=== PATIENT | female | born 1945 | race Caucasian/White ===

== ENCOUNTER 2019-12-18 14:23 | Inpatient (IN) ==
[~2019-12-18 14:23] MED LIST: Ipratropium/Albuterol Neb 3 ML ONE
[2019-12-18] MEDS ORDERED: Ipratropium/Albuterol Neb 3 ML IH ONE (14:33)
[2019-12-18] MEDS ORDERED: cefTRIAXone 1,000 MG in 0.9 % Sodium Chloride Mini Bag 100 ML IVPB ONE (14:33)
[2019-12-18] MEDS ORDERED: methylPREDNISolone 125 MG/2 ML VIAL IVP ONE (14:33)
[2019-12-18] MEDS ORDERED: Azithromycin 500 MG in 0.9 % Sodium Chloride 250 ML IVPB ONE (14:33)
[2019-12-18 16:50] LABS: Basophils % 0.2 %; Hematocrit 40.8 % (35.3-44.9); Immature Granulocytes % 1.2 % (0-4); Lymphocytes # 0.7 K/mcL (0.6-4.6); Lymphocytes % 6.5 %; Mean Corpuscular HGB Conc 31.9 g/dL (31.6-35.5); Mean Corpuscular Hemoglobin 28.1 pg (28.0-33.3); Mean Corpuscular Volume 88.1 fL (83.0-100.0); Mean Platelet Volume 10.2 fL (9.4-12.4); Monocytes # 0.1 K/mcL (0.0-1.3); Monocytes % 0.9 %; Platelet Count 356 K/mcL (140-400); Red Blood Count 4.63 M/mcL (3.82-4.97); Red Cell Distribution Width 14.2 % (11.5-14.5); Segmented Neutrophils % 91.2 %; White Blood Count 10.6 K/mcL (4.3-11.1)
[2019-12-18 16:54] LABS: Neutrophils # 9.7 K/mcL (1.6-8.9)
[2019-12-18] MEDS ORDERED: 0.9 % Sodium Chloride 1,000 ML IVC ONE (17:33)
[2019-12-18] MEDS ORDERED: Naloxone 0.4 MG/ML INJ IVP PRN (18:01)
[2019-12-18] MEDS ORDERED: Albuterol 2.5 MG/3 ML NEBULIZER IH PRN (18:02)
[2019-12-18 18:43] LABS: BUN/Creatinine Ratio 16 (6-26); Blood Urea Nitrogen 18 mg/dL (8-23); Calcium 9.4 mg/dL (8.6-10.3); Carbon Dioxide 21 mEq/L (23-29); Chloride 103 mEq/L (98-107); Glucose 247 mg/dL (70-105); Osmolality,Calculated 298 (280-300); Potassium 3.7 mEq/L (3.5-5.1); Sodium 139 mEq/L (136-145); Troponin I < 0.03 ng/mL (< 0.04); eGFR For African Americans 57 (> 60); eGFR For Non-African Americans 47 (> 60)
[2019-12-18] MEDS ORDERED: Ipratropium/Albuterol Neb 3 ML IH SCH (20:00)
[2019-12-18] MEDS: IPRATROPIUM/ALBUTEROL SULFATE 120 PUFF INHALER IH SCH (23:20)
[2019-12-18] MEDS: methylPREDNISolone 125 MG/2 ML VIAL IVP SCH (23:39)
[2019-12-18] MEDS: Pantoprazole 40 MG VIAL IVP SCH (23:40)
[2019-12-18] MEDS ORDERED: Acetaminophen 325 MG TABLET PO ONE (23:42)
[2019-12-19] MEDS: IPRATROPIUM/ALBUTEROL SULFATE 120 PUFF INHALER IH SCH ×6 (03:35→23:52)
[2019-12-19] MEDS ORDERED: *HR* Metoprolol 5 MG/5 ML VIAL IVP ONE (03:48)
[2019-12-19 05:02] LABS: Hematocrit 37.3 % (35.3-44.9); Hemoglobin 11.9 g/dL (11.5-15.4); Mean Corpuscular HGB Conc 31.9 g/dL (31.6-35.5); Mean Corpuscular Hemoglobin 28.1 pg (28.0-33.3); Mean Platelet Volume 10.3 fL (9.4-12.4); Platelet Count 297 K/mcL (140-400); Red Blood Count 4.24 M/mcL (3.82-4.97); Red Cell Distribution Width 14.6 % (11.5-14.5); White Blood Count 14.5 K/mcL (4.3-11.1)
[2019-12-19 05:21] LABS: BUN/Creatinine Ratio 22 (6-26); Blood Urea Nitrogen 22 mg/dL (8-23); Calcium 9.5 mg/dL (8.6-10.3); Carbon Dioxide 23 mEq/L (23-29); Chloride 104 mEq/L (98-107); Glucose 222 mg/dL (70-105); Osmolality,Calculated 296 (280-300); Potassium 3.6 mEq/L (3.5-5.1); Sodium 138 mEq/L (136-145); eGFR For African Americans > 60 (> 60); eGFR For Non-African Americans 54 (> 60)
[2019-12-19] MEDS ORDERED: 0.9 % Sodium Chloride 500 ML IVC ONE (06:22)
[2019-12-19] MEDS: *HR* Heparin 5,000 UNIT/ML VIAL SQ SCH ×2 (06:42→18:11)
[2019-12-19] MEDS: Pantoprazole 40 MG VIAL IVP SCH (06:43)
[2019-12-19] MEDS ORDERED: polyethylene glycoL 3350 17 GM POWD.PACK PO PRN (07:34)
[2019-12-19] MEDS: methylPREDNISolone 125 MG/2 ML VIAL IVP SCH ×3 (07:36→22:57)
[2019-12-19] MEDS: Azithromycin 250 MG TABLET PO SCH (07:36)
[2019-12-19] MEDS ORDERED: Metoprolol XL (24 HR) Succ 25 MG TAB.ER.24H PO SCH ×2 (09:00→21:00)
[2019-12-19] MEDS: Aspirin Enteric Coated 81 MG Tablet PO SCH (09:05)
[2019-12-19] MEDS: lisinopriL 20 MG TABLET PO SCH (09:06)
[2019-12-19] MEDS: hydroCHLOROthiazide 25 MG TABLET PO SCH (09:06)
[2019-12-19] MEDS: Cholecalciferol (D-3) 1,000 UNIT (25MCG) TABLET PO SCH (09:06)
[2019-12-19] MEDS: Verapamil ER (24 HR) 240 MG TABLET.ER PO SCH (09:21)
[2019-12-19] MEDS ORDERED: Naloxone 0.4 MG/ML INJ IVP PRN (09:28)
[2019-12-19] MEDS ORDERED: Acetaminophen 325 MG TABLET PO PRN (09:28)
[2019-12-19] MEDS: *HR* HYDROcodone/Acet 5/325 mg TABLET PO PRN (10:51)
[2019-12-19] MEDS ORDERED: *HR* Labetalol 20 MG/4 ML SYRINGE IVP ONE ×2 (12:06→12:49)
[2019-12-19] MEDS ORDERED: amLODIPine 5 MG TABLET PO SCH (12:45)
[2019-12-19] MEDS: 0.9 % Sodium Chloride 1,000 ML IVC SCH (12:56)
[2019-12-19] MEDS ORDERED: carvediloL 25 MG TABLET PO SCH ×2 (17:00)
[2019-12-19] MEDS: Fenofibrate 54 MG TABLET PO SCH (18:12)
[2019-12-20] MEDS: *HR* HYDROcodone/Acet 5/325 mg TABLET PO PRN (02:47)
[2019-12-20 02:50] LABS: Basophils % 0.1 %; Hemoglobin 11.6 g/dL (11.5-15.4); Immature Granulocytes % 1.2 % (0-4); Lymphocytes # 0.5 K/mcL (0.6-4.6); Lymphocytes % 3.3 %; Mean Corpuscular HGB Conc 31.4 g/dL (31.6-35.5); Mean Corpuscular Volume 89.4 fL (83.0-100.0); Mean Platelet Volume 10.8 fL (9.4-12.4); Monocytes # 0.4 K/mcL (0.0-1.3); Monocytes % 2.8 %; Neutrophils # 14.4 K/mcL (1.6-8.9); Platelet Count 263 K/mcL (140-400); Red Blood Count 4.14 M/mcL (3.82-4.97); Red Cell Distribution Width 14.8 % (11.5-14.5); Segmented Neutrophils % 92.6 %; White Blood Count 15.5 K/mcL (4.3-11.1)
[2019-12-20] MEDS: 0.9 % Sodium Chloride 1,000 ML IVC SCH (02:53)
[2019-12-20 03:04] LABS: BUN/Creatinine Ratio 33 (6-26); Blood Urea Nitrogen 24 mg/dL (8-23); Calcium 8.9 mg/dL (8.6-10.3); Carbon Dioxide 26 mEq/L (23-29); Chloride 105 mEq/L (98-107); Glucose 195 mg/dL (70-105); Osmolality,Calculated 297 (280-300); Potassium 3.8 mEq/L (3.5-5.1); Sodium 139 mEq/L (136-145); eGFR For African Americans > 60 (> 60); eGFR For Non-African Americans > 60 (> 60)
[2019-12-20] MEDS: IPRATROPIUM/ALBUTEROL SULFATE 120 PUFF INHALER IH SCH ×2 (03:43→08:09)
[2019-12-20] MEDS: *HR* Heparin 5,000 UNIT/ML VIAL SQ SCH ×2 (05:03→17:38)
[2019-12-20] MEDS: carvediloL 25 MG TABLET PO SCH ×2 (08:05→17:38)
[2019-12-20] MEDS: Aspirin Enteric Coated 81 MG Tablet PO SCH (08:06)
[2019-12-20] MEDS: hydroCHLOROthiazide 25 MG TABLET PO SCH (08:06)
[2019-12-20] MEDS: Azithromycin 250 MG TABLET PO SCH (08:06)
[2019-12-20] MEDS: Verapamil ER (24 HR) 240 MG TABLET.ER PO SCH (08:06)
[2019-12-20] MEDS: lisinopriL 20 MG TABLET PO SCH (08:06)
[2019-12-20] MEDS: Cholecalciferol (D-3) 1,000 UNIT (25MCG) TABLET PO SCH (08:06)
[2019-12-20] MEDS: methylPREDNISolone 125 MG/2 ML VIAL IVP SCH (08:07)
[2019-12-20] MEDS ORDERED: GuaiFENesin Liq 200 MG/10 ML UDC PO PRN (10:20)
[2019-12-20] MEDS: Budesonide/Formoterol 160/4.5 1 PUFF INH IH SCH ×2 (11:26→20:00)
[2019-12-20] MEDS: Ipratropium/Albuterol Neb 3 ML IH SCH ×4 (11:55→23:45)
[2019-12-20] MEDS ORDERED: *HR* Dextrose 50 % in Water (Syg) 50 ML SYRINGE IVP PRN (12:06)
[2019-12-20] MEDS ORDERED: Dextrose Gel 15 GM/37.5 ML TUBE PO PRN ×2 (12:06)
[2019-12-20] MEDS ORDERED: D5% in Water 1,000 ML IVC PRN (12:06)
[2019-12-20] MEDS ORDERED: *HR* Labetalol 20 MG/4 ML SYRINGE IVP ONE (16:59)
[2019-12-20] MEDS: Insulin LISPRO 300 UNITS/3 ML VIAL SQ SCH ×2 (17:31→20:15)
[2019-12-20] MEDS: MethylPREDNISolone 40 MG/ML VIAL IVP SCH (17:38)
[2019-12-20] MEDS: Fenofibrate 54 MG TABLET PO SCH (17:38)
[2019-12-20] MEDS: amLODIPine 5 MG TABLET PO SCH (17:39)
[2019-12-20] MEDS: *HR* OxyCODONE Immed Rel 5 MG TABLET PO PRN (21:11)
[2019-12-21] MEDS: Ipratropium/Albuterol Neb 3 ML IH SCH ×6 (03:30→23:28)
[2019-12-21] MEDS: *HR* Heparin 5,000 UNIT/ML VIAL SQ SCH ×2 (05:03→17:19)
[2019-12-21] MEDS: MethylPREDNISolone 40 MG/ML VIAL IVP SCH (05:03)
[2019-12-21] MEDS: *HR* OxyCODONE Immed Rel 5 MG TABLET PO PRN ×2 (06:37→19:42)
[2019-12-21] MEDS: Budesonide/Formoterol 160/4.5 1 PUFF INH IH SCH ×2 (07:37→20:04)
[2019-12-21] MEDS: Aspirin Enteric Coated 81 MG Tablet PO SCH (09:05)
[2019-12-21] MEDS: Insulin LISPRO 300 UNITS/3 ML VIAL SQ SCH ×4 (09:05→20:55)
[2019-12-21] MEDS: carvediloL 25 MG TABLET PO SCH ×2 (09:05→17:19)
[2019-12-21] MEDS: hydroCHLOROthiazide 25 MG TABLET PO SCH (09:06)
[2019-12-21] MEDS: amLODIPine 5 MG TABLET PO SCH (09:06)
[2019-12-21] MEDS: Verapamil ER (24 HR) 240 MG TABLET.ER PO SCH (09:06)
[2019-12-21] MEDS: lisinopriL 20 MG TABLET PO SCH (09:07)
[2019-12-21] MEDS: Azithromycin 250 MG TABLET PO SCH (09:07)
[2019-12-21] MEDS: Cholecalciferol (D-3) 1,000 UNIT (25MCG) TABLET PO SCH (09:07)
[2019-12-21] MEDS ORDERED: MethylPREDNISolone 40 MG/ML VIAL IVP ONE (15:31)
[2019-12-21] MEDS: Fenofibrate 54 MG TABLET PO SCH (17:27)
[2019-12-22] MEDS: Ipratropium/Albuterol Neb 3 ML IH SCH ×2 (03:34→07:27)
[2019-12-22] MEDS: *HR* Heparin 5,000 UNIT/ML VIAL SQ SCH (05:32)
[2019-12-22 06:45] LABS: Basophils % 0.3 %; Hematocrit 40.3 % (35.3-44.9); Hemoglobin 12.8 g/dL (11.5-15.4); Immature Granulocytes % 2.4 % (0-4); Lymphocytes % 10.4 %; Mean Corpuscular HGB Conc 31.8 g/dL (31.6-35.5); Mean Corpuscular Hemoglobin 27.9 pg (28.0-33.3); Mean Platelet Volume 10.2 fL (9.4-12.4); Monocytes # 0.9 K/mcL (0.0-1.3); Monocytes % 10.2 %; Platelet Count 312 K/mcL (140-400); Red Blood Count 4.58 M/mcL (3.82-4.97); Red Cell Distribution Width 14.3 % (11.5-14.5); Segmented Neutrophils % 76.7 %; White Blood Count 9.2 K/mcL (4.3-11.1)
[2019-12-22 07:08] LABS: BUN/Creatinine Ratio 32 (6-26); Blood Urea Nitrogen 26 mg/dL (8-23); Calcium 9.2 mg/dL (8.6-10.3); Carbon Dioxide 30 mEq/L (23-29); Chloride 99 mEq/L (98-107); Glucose 143 mg/dL (70-105); Osmolality,Calculated 293 (280-300); Potassium 3.7 mEq/L (3.5-5.1); Sodium 138 mEq/L (136-145); eGFR For African Americans > 60 (> 60); eGFR For Non-African Americans > 60 (> 60)
[2019-12-22] MEDS: Budesonide/Formoterol 160/4.5 1 PUFF INH IH SCH (07:28)
[2019-12-22 07:57] VITALS: BP 158/76
[2019-12-22] MEDS: Insulin LISPRO 300 UNITS/3 ML VIAL SQ SCH (08:57)
[2019-12-22] MEDS ORDERED: *HR* Acetylcysteine 20% 600 MG/3 ML ORAL SYRINGE PO SCH (09:00)
[2019-12-22] MEDS ORDERED: predniSONE 20 MG TABLET PO SCH (09:00)
[2019-12-22] MEDS ORDERED: (Roflumilast [Daliresp] 500 MCG) PO SCH (09:00)
[2019-12-22] MEDS: Aspirin Enteric Coated 81 MG Tablet PO SCH (09:07)
[2019-12-22] MEDS: Verapamil ER (24 HR) 240 MG TABLET.ER PO SCH (09:07)
[2019-12-22] MEDS: Azithromycin 250 MG TABLET PO SCH (09:08)
[2019-12-22] MEDS: hydroCHLOROthiazide 25 MG TABLET PO SCH (09:08)
[2019-12-22] MEDS: lisinopriL 20 MG TABLET PO SCH (09:08)
[2019-12-22] MEDS: carvediloL 25 MG TABLET PO SCH (09:08)
[2019-12-22] MEDS: Cholecalciferol (D-3) 1,000 UNIT (25MCG) TABLET PO SCH (09:08)
[2019-12-22] MEDS: amLODIPine 5 MG TABLET PO SCH (09:11)
== END 2019-12-22 10:52 | disposition home health service (06) | DRG 190 ==
LOC: EMEROOARM 14:23 → 2NENU 14:23 → 3BNU 12-20 19:26
PROVIDERS: ADMIT Internal Medicine; ATTEND Internal Medicine

== ENCOUNTER 2020-06-29 16:57 | Inpatient (IN) ==
[2020-06-29 18:11] LABS: Hematocrit 39.5 % (35.3-44.9); Hemoglobin 12.6 g/dL (11.5-15.4); Mean Corpuscular HGB Conc 31.9 g/dL (31.6-35.5); Mean Corpuscular Hemoglobin 28.5 pg (28.0-33.3); Mean Corpuscular Volume 89.4 fL (83.0-100.0); Mean Platelet Volume 10.6 fL (9.4-12.4); Platelet Count 248 K/mcL (140-400); Red Blood Count 4.42 M/mcL (3.82-4.97); Red Cell Distribution Width 13.5 % (11.5-14.5); White Blood Count 3.8 K/mcL (4.3-11.1)
[2020-06-29 18:29] LABS: BUN/Creatinine Ratio 16 (6-26); Blood Urea Nitrogen 13 mg/dL (8-23); Calcium 9.2 mg/dL (8.6-10.3); Carbon Dioxide 29 mEq/L (23-29); Chloride 103 mEq/L (98-107); Glucose 90 mg/dL (70-105); Osmolality,Calculated 290 (280-300); Potassium 3.1 mEq/L (3.5-5.1); Sodium 140 mEq/L (136-145); Troponin I < 0.03 ng/mL (< 0.04); eGFR For African Americans > 60 (> 60); eGFR For Non-African Americans > 60 (> 60)
[2020-06-29] MEDS ORDERED: cefTRIAXone 1,000 MG in 0.9 % Sodium Chloride Mini Bag 100 ML IVPB ONE (18:34)
[2020-06-29] MEDS ORDERED: Azithromycin 500 MG in 0.9 % Sodium Chloride 250 ML IVPB ONE (18:34)
[2020-06-29 18:48] LABS: Basophils # 0.2 K/mcL (0.0-0.2); Large Platelets Present (Not Present); Lymphocytes # 1.4 K/mcL (0.6-4.6); Monocytes # 0.4 K/mcL (0.0-1.3); Neutrophils # 1.8 K/mcL (1.6-8.9); Platelet Estimate Normal (Normal); Reactive Lymphocytes Present (Not Present)
[2020-06-29 18:56] LABS: Adenovirus Not Detected (Not Detect); Bordetella Pertussis Not Detected (Not Detect); Coronavirus 229E Not Detected (Not Detect); Coronavirus HKU1 Not Detected (Not Detect); Coronavirus NL63 Not Detected (Not Detect); Coronavirus OC43 Not Detected (Not Detect); Human Metapneumovirus Not Detected (Not Detect); Human Rhinovirus/Enterovirus Not Detected (Not Detect); Influenza A Subtype 2009 H1 Not Detected (Not Detect); Influenza B Not Detected (Not Detect); Parainfluenza Virus 1 Not Detected (Not Detect); Parainfluenza Virus 2 Not Detected (Not Detect); Parainfluenza Virus 3 Not Detected (Not Detect); Parainfluenza Virus 4 Not Detected (Not Detect); Respiratory Syncytial Virus Not Detected (Not Detect)
[2020-06-29 18:57] LABS: Chlamydophila pneumoniae Not Detected (Not Detect); Mycoplasma pneumoniae Not Detected (Not Detect)
[2020-06-29 18:58] LABS: SARS-CoV-2 DETECTED (Not Detect)
[2020-06-29] MEDS ORDERED: Dexamethasone 4 MG/ML VIAL IVP ONE (18:59)
[2020-06-29] MEDS ORDERED: Ipratropium/Albuterol Neb 3 ML IH ONE (19:21)
[2020-06-29] MEDS ORDERED: Naloxone 0.4 MG/ML INJ IVP PRN (20:53)
[2020-06-29] MEDS ORDERED: Ondansetron 4 MG/2 ML VIAL IVP PRN (20:53)
[2020-06-29] MEDS ORDERED: Acetaminophen 325 MG TABLET PO PRN (20:53)
[2020-06-29] MEDS ORDERED: MethylPREDNISolone 40 MG/ML VIAL IVP ONE (22:15)
[2020-06-30] MEDS: Ipratropium 1 PUFF INHALER IH SCH ×7 (00:20→23:35)
[2020-06-30 04:27] LABS: Basophils % 0.2 %; Hematocrit 40.7 % (35.3-44.9); Hemoglobin 13.3 g/dL (11.5-15.4); Immature Granulocytes % 0.7 % (0-4); Lymphocytes # 0.8 K/mcL (0.6-4.6); Lymphocytes % 17.5 %; Mean Corpuscular HGB Conc 32.7 g/dL (31.6-35.5); Mean Corpuscular Hemoglobin 29.6 pg (28.0-33.3); Mean Corpuscular Volume 90.6 fL (83.0-100.0); Mean Platelet Volume 10.4 fL (9.4-12.4); Monocytes # 0.2 K/mcL (0.0-1.3); Monocytes % 3.7 %; Neutrophils # 3.4 K/mcL (1.6-8.9); Platelet Count 265 K/mcL (140-400); Red Blood Count 4.49 M/mcL (3.82-4.97); Red Cell Distribution Width 13.6 % (11.5-14.5); Segmented Neutrophils % 77.9 %; White Blood Count 4.3 K/mcL (4.3-11.1)
[2020-06-30 04:47] LABS: Alanine Aminotransferase 62 Units/L (7-52); Albumin 4.6 g/dL (3.5-5.7); Albumin/Globulin Ratio 1.8 (1.1-2.2); Alkaline Phosphatase 46 Units/L (34-104); Aspartate Amino Transferase 43 Units/L (13-39); BUN/Creatinine Ratio 17 (6-26); Bilirubin,Total 0.3 mg/dL (0.3-1.0); Blood Urea Nitrogen 14 mg/dL (8-23); C-Reactive Protein 11 mg/L (Less than 10); Calcium 9.2 mg/dL (8.6-10.3); Carbon Dioxide 22 mEq/L (23-29); Chloride 104 mEq/L (98-107); Cholesterol 159 mg/dL (< 200); Globulin 2.6 g/dL (2.4-3.5); Glucose 214 mg/dL (70-105); HDL Cholesterol 40 mg/dL (40-59); LDL Cholesterol,Calculated 96 mg/dL (< 100); Lactate Dehydrogenase 198 Units/L (140-271); Magnesium 1.5 mg/dL (1.6-2.6); Osmolality,Calculated 297 (280-300); Potassium 3.8 mEq/L (3.5-5.1); Sodium 140 mEq/L (136-145); Total Protein 7.2 g/dL (6.4-8.9); Triglycerides 117 mg/dL (< 150); eGFR For African Americans > 60 (> 60); eGFR For Non-African Americans > 60 (> 60)
[2020-06-30 05:04] LABS: Ferritin 74 ng/mL (10-120)
[2020-06-30] MEDS: *HR* Enoxaparin 40 MG/0.4 ML SYRINGE SQ SCH (05:20)
[2020-06-30] MEDS ORDERED: Potassium Phosphate 44 MEQ in 0.9 % Sodium Chloride 250 ML IVPB ONE (08:17)
[2020-06-30] MEDS ORDERED: Dexamethasone Sodium Phos/PF 10 MG/ML VIAL IVP SCH (09:00)
[2020-06-30] MEDS: amLODIPine 5 MG TABLET PO SCH (14:56)
[2020-06-30] MEDS: Verapamil ER (24 HR) 240 MG TABLET.ER PO SCH (14:56)
[2020-06-30] MEDS: Dexamethasone Sodium Phos/PF 10 MG/ML VIAL IVP SCH (15:17)
[2020-06-30] MEDS: carvediloL 25 MG TABLET PO SCH (15:22)
[2020-06-30] MEDS ORDERED: Ipratropium/Albuterol Neb 3 ML IH SCH (16:00)
[2020-06-30] MEDS ORDERED: Aspirin 81 MG TAB.CHEW PO ONE (17:35)
[2020-06-30] MEDS ORDERED: Azithromycin 500 MG in 0.9 % Sodium Chloride 250 ML IVPB SCH (21:00)
[2020-06-30] MEDS: GuaiFENesin/Codeine Oral Soln 5 ML UDC PO PRN (21:55)
[2020-07-01] MEDS: Ipratropium 1 PUFF INHALER IH SCH ×6 (03:26→22:37)
[2020-07-01 05:56] LABS: Hematocrit 37.1 % (35.3-44.9); Mean Corpuscular HGB Conc 32.3 g/dL (31.6-35.5); Mean Corpuscular Hemoglobin 28.6 pg (28.0-33.3); Mean Corpuscular Volume 88.3 fL (83.0-100.0); Mean Platelet Volume 10.2 fL (9.4-12.4); Platelet Count 247 K/mcL (140-400); Red Cell Distribution Width 13.7 % (11.5-14.5)
[2020-07-01] MEDS: *HR* Enoxaparin 40 MG/0.4 ML SYRINGE SQ SCH (06:00)
[2020-07-01] MEDS: GuaiFENesin/Codeine Oral Soln 5 ML UDC PO PRN ×3 (06:01→22:30)
[2020-07-01 06:03] LABS: White Blood Count 9.9 K/mcL (4.3-11.1)
[2020-07-01 06:26] LABS: BUN/Creatinine Ratio 26 (6-26); Blood Urea Nitrogen 18 mg/dL (8-23); Calcium 9.4 mg/dL (8.6-10.3); Carbon Dioxide 23 mEq/L (23-29); Chloride 104 mEq/L (98-107); Glucose 169 mg/dL (70-105); Magnesium 1.9 mg/dL (1.6-2.6); Osmolality,Calculated 292 (280-300); Phosphorous 2.7 mg/dL (2.7-4.5); Potassium 3.9 mEq/L (3.5-5.1); Sodium 138 mEq/L (136-145); eGFR For African Americans > 60 (> 60); eGFR For Non-African Americans > 60 (> 60)
[2020-07-01] MEDS: Tiotropium 10 INH DOSE IH SCH (07:58)
[2020-07-01] MEDS: Azithromycin 250 MG TABLET PO SCH (08:14)
[2020-07-01] MEDS: carvediloL 25 MG TABLET PO SCH ×2 (08:14→16:05)
[2020-07-01] MEDS: amLODIPine 5 MG TABLET PO SCH (08:14)
[2020-07-01] MEDS: hydroCHLOROthiazide 25 MG TABLET PO SCH (08:14)
[2020-07-01] MEDS: lisinopriL 20 MG TABLET PO SCH (08:14)
[2020-07-01] MEDS: Dexamethasone Sodium Phos/PF 10 MG/ML VIAL IVP SCH (08:15)
[2020-07-01] MEDS ORDERED: NON-FORMULARY MEDICATION 1 EACH EACH (Fluticasone/Umeclidin/Vilanter [Trelegy Ellipta 100- IH SCH (09:00)
[2020-07-01] MEDS: Verapamil ER (24 HR) 240 MG TABLET.ER PO SCH (09:40)
[2020-07-01] MEDS: Budesonide/Formoterol 160/4.5 1 PUFF INH IH SCH ×2 (09:49→19:26)
[2020-07-01] MEDS: Benzonatate 100 MG CAPSULE PO PRN ×2 (16:05→22:31)
[2020-07-02] MEDS ORDERED: 0.9 % Sodium Chloride 250 ML ONE (02:31)
[2020-07-02] MEDS: Ipratropium 1 PUFF INHALER IH SCH ×5 (03:35→19:53)
[2020-07-02] MEDS: *HR* Enoxaparin 40 MG/0.4 ML SYRINGE SQ SCH (05:32)
[2020-07-02] MEDS: Budesonide/Formoterol 160/4.5 1 PUFF INH IH SCH ×2 (08:15→19:54)
[2020-07-02] MEDS: Dexamethasone Sodium Phos/PF 10 MG/ML VIAL IVP SCH (08:28)
[2020-07-02] MEDS: lisinopriL 20 MG TABLET PO SCH (08:30)
[2020-07-02] MEDS: carvediloL 25 MG TABLET PO SCH ×2 (08:30→17:23)
[2020-07-02] MEDS: amLODIPine 5 MG TABLET PO SCH (08:30)
[2020-07-02] MEDS: hydroCHLOROthiazide 25 MG TABLET PO SCH (08:30)
[2020-07-02] MEDS: Verapamil ER (24 HR) 240 MG TABLET.ER PO SCH (08:30)
[2020-07-02] MEDS: Azithromycin 250 MG TABLET PO SCH (08:31)
[2020-07-02] MEDS: GuaiFENesin/Codeine Oral Soln 5 ML UDC PO PRN (08:45)
[2020-07-02] MEDS ORDERED: Aspirin Enteric Coated 81 MG Tablet PO SCH (09:00)
[2020-07-02] MEDS: Benzonatate 100 MG CAPSULE PO PRN (10:42)
[2020-07-02] MEDS: Tiotropium 10 INH DOSE IH SCH (11:53)
[2020-07-02 18:52] VITALS: BP 137/66
== END 2020-07-02 19:45 | disposition critical access hospital (66) | DRG 177 ==
LOC: EMEROOARM 16:57 → 3BNU 16:57 → SUATTDRO 06-30 14:41 → 2NENU 06-30 17:23
PROVIDERS: ADMIT Internal Medicine Nephrology; ATTEND Family Medicine

== ENCOUNTER 2021-03-28 19:39 | Observation (INO) ==
[2021-03-28] MEDS ORDERED: Famotidine 20 MG/2 ML VIAL IVP ONE (20:11)
[2021-03-28] MEDS ORDERED: methylPREDNISolone 125 MG/2 ML VIAL IVP ONE (20:11)
[2021-03-28] MEDS ORDERED: Ipratropium/Albuterol Neb 3 ML IH ONE ×2 (20:11→22:00)
[2021-03-28 20:57] LABS: Basophils % 0.2 %; Eosinophils # 0.1 K/mcL (0.0-0.6); Eosinophils % 0.5 %; Hematocrit 43.5 % (35.3-44.9); Hemoglobin 14.1 g/dL (11.5-15.4); Immature Granulocytes % 0.8 % (0-4); Lymphocytes # 0.9 K/mcL (0.6-4.6); Lymphocytes % 8.1 %; Mean Corpuscular HGB Conc 32.4 g/dL (31.6-35.5); Mean Corpuscular Hemoglobin 28.7 pg (28.0-33.3); Mean Corpuscular Volume 88.6 fL (83.0-100.0); Mean Platelet Volume 10.1 fL (9.4-12.4); Monocytes # 0.6 K/mcL (0.0-1.3); Monocytes % 5.9 %; Platelet Count 278 K/mcL (140-400); Red Blood Count 4.91 M/mcL (3.82-4.97); Red Cell Distribution Width 13.1 % (11.5-14.5); Segmented Neutrophils % 84.5 %; White Blood Count 10.6 K/mcL (4.3-11.1)
[2021-03-28 21:16] LABS: Alanine Aminotransferase 19 Units/L (7-52); Albumin 4.3 g/dL (3.5-5.7); Albumin/Globulin Ratio 2.2 (1.1-2.2); Alkaline Phosphatase 48 Units/L (34-104); Aspartate Amino Transferase 17 Units/L (13-39); BUN/Creatinine Ratio 29 (6-26); Bilirubin,Total 0.4 mg/dL (0.3-1.0); Blood Urea Nitrogen 26 mg/dL (8-23); Calcium 10.1 mg/dL (8.6-10.3); Carbon Dioxide 27 mEq/L (23-29); Chloride 104 mEq/L (98-107); Glucose 156 mg/dL (70-105); Osmolality,Calculated 298 (280-300); Potassium 3.4 mEq/L (3.5-5.1); Sodium 140 mEq/L (136-145); Total Protein 6.3 g/dL (6.4-8.9); eGFR For African Americans > 60 (> 60); eGFR For Non-African Americans > 60 (> 60)
[2021-03-28] MEDS ORDERED: EPINEPHrine 1 MG/ML VIAL IM ONE ×2 (21:23→23:19)
[2021-03-28] MEDS ORDERED: Albuterol 2.5 MG/3 ML NEBULIZER IH ONE ×2 (22:00→23:19)
[2021-03-29] MEDS ORDERED: Melatonin 3 MG TABLET PO PRN (00:06)
[2021-03-29] MEDS ORDERED: Ondansetron 4 MG/2 ML VIAL IVP PRN (00:06)
[2021-03-29] MEDS ORDERED: Naloxone 0.4 MG/ML INJ IVP PRN (00:06)
[2021-03-29] MEDS ORDERED: Albuterol 2.5 MG/3 ML NEBULIZER ONE (00:21)
[2021-03-29] MEDS: Ipratropium/Albuterol Neb 3 ML IH SCH ×6 (00:21→21:45)
[2021-03-29] MEDS: Azithromycin 500 MG in 0.9 % Sodium Chloride 250 ML IVPB SCH (02:11)
[2021-03-29] MEDS: Acetaminophen 325 MG TABLET PO PRN ×4 (02:14→21:44)
[2021-03-29 05:24] LABS: BUN/Creatinine Ratio 26 (6-26); Blood Urea Nitrogen 21 mg/dL (8-23); Calcium 9.6 mg/dL (8.6-10.3); Carbon Dioxide 27 mEq/L (23-29); Chloride 103 mEq/L (98-107); Glucose 188 mg/dL (70-105); Osmolality,Calculated 298 (280-300); Potassium 3.2 mEq/L (3.5-5.1); Sodium 140 mEq/L (136-145); eGFR For African Americans > 60 (> 60); eGFR For Non-African Americans > 60 (> 60)
[2021-03-29] MEDS: *HR* Heparin 5,000 UNIT/ML VIAL SQ SCH ×3 (05:29→21:44)
[2021-03-29 05:40] LABS: Hematocrit 40.1 % (35.3-44.9); Hemoglobin 13.1 g/dL (11.5-15.4); Mean Corpuscular HGB Conc 32.7 g/dL (31.6-35.5); Mean Corpuscular Hemoglobin 28.9 pg (28.0-33.3); Mean Corpuscular Volume 88.3 fL (83.0-100.0); Mean Platelet Volume 10.4 fL (9.4-12.4); Platelet Count 275 K/mcL (140-400); Red Blood Count 4.54 M/mcL (3.82-4.97); White Blood Count 11.3 K/mcL (4.3-11.1)
[2021-03-29] MEDS ORDERED: MethylPREDNISolone 40 MG/ML VIAL IVP SCH (06:00)
[2021-03-29] MEDS: predniSONE 20 MG TABLET PO SCH (11:49)
[2021-03-29] MEDS: Famotidine 20 MG/2 ML VIAL IVP SCH ×2 (11:50→11:53)
[2021-03-29 13:13] LABS: Adenovirus Not Detected (Not Detect); Coronavirus 229E Not Detected (Not Detect); Coronavirus HKU1 Not Detected (Not Detect); Coronavirus NL63 Not Detected (Not Detect); Coronavirus OC43 Not Detected (Not Detect); Human Metapneumovirus Not Detected (Not Detect); Human Rhinovirus/Enterovirus Not Detected (Not Detect); SARS-CoV-2 Not Detected (Not Detect)
[2021-03-29 13:14] LABS: Bordetella Pertussis Not Detected (Not Detect); Chlamydophila pneumoniae Not Detected (Not Detect); Influenza A Subtype 2009 H1 Not Detected (Not Detect); Influenza B Not Detected (Not Detect); Mycoplasma pneumoniae Not Detected (Not Detect); Parainfluenza Virus 1 Not Detected (Not Detect); Parainfluenza Virus 2 Not Detected (Not Detect); Parainfluenza Virus 3 Not Detected (Not Detect); Parainfluenza Virus 4 Not Detected (Not Detect); Respiratory Syncytial Virus Not Detected (Not Detect)
[2021-03-29] MEDS: carvediloL 25 MG TABLET PO SCH (16:50)
[2021-03-30] MEDS: Ipratropium/Albuterol Neb 3 ML IH SCH ×4 (00:52→11:10)
[2021-03-30] MEDS: Azithromycin 500 MG in 0.9 % Sodium Chloride 250 ML IVPB SCH (02:05)
[2021-03-30] MEDS: Acetaminophen 325 MG TABLET PO PRN (04:08)
[2021-03-30 05:15] LABS: Basophils % 0.2 %; Hematocrit 40.3 % (35.3-44.9); Immature Granulocytes % 0.5 % (0-4); Lymphocytes # 1.2 K/mcL (0.6-4.6); Lymphocytes % 8.1 %; Mean Corpuscular HGB Conc 32.3 g/dL (31.6-35.5); Mean Corpuscular Volume 89.8 fL (83.0-100.0); Mean Platelet Volume 10.2 fL (9.4-12.4); Monocytes # 1.1 K/mcL (0.0-1.3); Monocytes % 7.5 %; Neutrophils # 12.7 K/mcL (1.6-8.9); Platelet Count 287 K/mcL (140-400); Red Blood Count 4.49 M/mcL (3.82-4.97); Red Cell Distribution Width 13.3 % (11.5-14.5); Segmented Neutrophils % 83.7 %; White Blood Count 15.2 K/mcL (4.3-11.1)
[2021-03-30] MEDS: Famotidine 20 MG/2 ML VIAL IVP SCH (05:25)
[2021-03-30] MEDS: *HR* Heparin 5,000 UNIT/ML VIAL SQ SCH (05:25)
[2021-03-30 05:34] LABS: BUN/Creatinine Ratio 28 (6-26); Blood Urea Nitrogen 22 mg/dL (8-23); Calcium 9.5 mg/dL (8.6-10.3); Carbon Dioxide 30 mEq/L (23-29); Chloride 103 mEq/L (98-107); Glucose 112 mg/dL (70-105); Osmolality,Calculated 294 (280-300); Potassium 3.2 mEq/L (3.5-5.1); Sodium 140 mEq/L (136-145); eGFR For African Americans > 60 (> 60); eGFR For Non-African Americans > 60 (> 60)
[2021-03-30] MEDS: carvediloL 25 MG TABLET PO SCH (07:45)
[2021-03-30] MEDS: predniSONE 20 MG TABLET PO SCH (07:45)
[2021-03-30] MEDS ORDERED: tiZANidine 4 MG TABLET PO PRN (07:58)
[2021-03-30] MEDS ORDERED: Fluticasone Propionate Nasal 50 MCG/SPRAY BOTTLE NS PRN (07:58)
[2021-03-30] MEDS ORDERED: Aspirin Enteric Coated 81 MG Tablet PO SCH (09:00)
[2021-03-30] MEDS ORDERED: lisinopriL 20 MG TABLET PO SCH (09:00)
[2021-03-30] MEDS ORDERED: hydroCHLOROthiazide 25 MG TABLET PO SCH (09:00)
[2021-03-30] MEDS ORDERED: Tiotropium 10 INH DOSE IH SCH (10:00)
[2021-03-30] MEDS: Budesonide/Formoterol 160/4.5 1 PUFF INH IH SCH ×2 (11:21→11:28)
[2021-03-30 14:55] VITALS: BP 180/82; PULSE 89; TEMP 97.9; O2SAT 95
== END 2021-03-30 17:35 | disposition home or self-care (01) ==
LOC: 4WAOSI 19:39 → EMEROOARM 19:39 → SUATTDRO 03-29 00:30 → 4WAOSI 03-29 01:35
PROVIDERS: ADMIT Student in an Organized Health Care Education/Training Program; ATTEND Student in an Organized Health Care Education/Training Program

== ENCOUNTER 2021-11-19 00:34 | Inpatient (IN) ==
[2021-11-19] MEDS ORDERED: Ondansetron 4 MG/2 ML VIAL IVP PRN (00:46)
[2021-11-19] MEDS ORDERED: Naloxone 0.4 MG/ML INJ IVP PRN (00:46)
[2021-11-19] MEDS ORDERED: Morphine Sulfate 2 MG/ML SYRINGE IVP PRN (00:54)
[2021-11-19 02:27] LABS: BUN/Creatinine Ratio 22 (6-26); Blood Urea Nitrogen 17 mg/dL (8-23); Calcium 9.7 mg/dL (8.6-10.3); Carbon Dioxide 28 mEq/L (23-29); Chloride 104 mEq/L (98-107); Glucose 116 mg/dL (70-105); Osmolality,Calculated 293 (280-300); Sodium 140 mEq/L (136-145); Troponin I < 0.03 ng/mL (< 0.04); eGFR For African Americans > 60 (> 60); eGFR For Non-African Americans > 60 (> 60)
[2021-11-19] MEDS ORDERED: Nitroglycerin 0.4 MG TAB.SUBL SL PRN (05:37)
[2021-11-19] MEDS ORDERED: Regadenoson 0.4 MG/5 ML SYRINGE IVP ONE ×2 (06:23→11:35)
[2021-11-19] MEDS: Ipratropium/Albuterol Neb 3 ML IH PRN ×2 (09:39→16:51)
[2021-11-19] MEDS ORDERED: methylPREDNISolone 125 MG/2 ML VIAL IVP ONE (09:41)
[2021-11-19] MEDS ORDERED: Ipratropium Neb 0.5 MG NEBULIZER ONE (09:44)
[2021-11-19] MEDS: Ipratropium Neb 0.5 MG NEBULIZER IH SCH ×4 (09:46→23:39)
[2021-11-19] MEDS: carvediloL 25 MG TABLET PO SCH ×2 (10:30→17:10)
[2021-11-19] MEDS: hydroCHLOROthiazide 25 MG TABLET PO SCH (10:30)
[2021-11-19] MEDS ORDERED: NON-FORMULARY MEDICATION 1 EACH EACH (Fluticasone/Umeclidin/Vilanter [Trelegy Ellipta 100- IH SCH (12:00)
[2021-11-19] MEDS: lisinopriL 20 MG TABLET PO SCH (13:26)
[2021-11-19] MEDS ORDERED: Melatonin 3 MG TABLET PO PRN (17:22)
[2021-11-19] MEDS: Budesonide/Formoterol 160/4.5 1 PUFF INH IH SCH (20:08)
[2021-11-19] MEDS: Acetaminophen 325 MG TABLET PO PRN (20:44)
[2021-11-20] MEDS: Ipratropium Neb 0.5 MG NEBULIZER IH SCH ×6 (03:54→23:49)
[2021-11-20] MEDS: Acetaminophen 325 MG TABLET PO PRN ×2 (04:23→14:41)
[2021-11-20] MEDS ORDERED: Famotidine 20 MG/2 ML VIAL IVP ONE (04:29)
[2021-11-20] MEDS ORDERED: Regadenoson 0.4 MG/5 ML SYRINGE IVP ONE (06:03)
[2021-11-20] MEDS: Aspirin Enteric Coated 81 MG Tablet PO SCH (09:44)
[2021-11-20] MEDS: Loratadine 10 MG TABLET PO SCH (09:44)
[2021-11-20] MEDS: hydroCHLOROthiazide 25 MG TABLET PO SCH (09:44)
[2021-11-20] MEDS: predniSONE 20 MG TABLET PO SCH (09:44)
[2021-11-20] MEDS: lisinopriL 20 MG TABLET PO SCH (09:44)
[2021-11-20] MEDS: carvediloL 25 MG TABLET PO SCH ×2 (09:47→17:37)
[2021-11-20] MEDS: Budesonide/Formoterol 160/4.5 1 PUFF INH IH SCH ×2 (11:07→20:01)
[2021-11-20 12:06] LABS: BUN/Creatinine Ratio 25 (6-26); Blood Urea Nitrogen 18 mg/dL (8-23); Calcium 10.5 mg/dL (8.6-10.3); Carbon Dioxide 29 mEq/L (23-29); Chloride 101 mEq/L (98-107); Glucose 109 mg/dL (70-105); Osmolality,Calculated 290 (280-300); Potassium 3.7 mEq/L (3.5-5.1); Sodium 139 mEq/L (136-145); eGFR For African Americans > 60 (> 60); eGFR For Non-African Americans > 60 (> 60)
[2021-11-20 13:13] LABS: Basophils % 0.1 %; Hematocrit 41.5 % (35.3-44.9); Hemoglobin 13.9 g/dL (11.5-15.4); Immature Granulocytes % 0.8 % (0-4); Lymphocytes # 0.9 K/mcL (0.6-4.6); Lymphocytes % 6.6 %; Mean Corpuscular HGB Conc 33.5 g/dL (31.6-35.5); Mean Corpuscular Hemoglobin 29.9 pg (28.0-33.3); Mean Corpuscular Volume 89.2 fL (83.0-100.0); Mean Platelet Volume 9.9 fL (9.4-12.4); Monocytes # 0.8 K/mcL (0.0-1.3); Monocytes % 5.7 %; Neutrophils # 11.8 K/mcL (1.6-8.9); Platelet Count 279 K/mcL (140-400); Red Blood Count 4.65 M/mcL (3.82-4.97); Red Cell Distribution Width 13.4 % (11.5-14.5); Segmented Neutrophils % 86.8 %; White Blood Count 13.6 K/mcL (4.3-11.1)
[2021-11-20] MEDS ORDERED: *HR* Labetalol 20 MG/4 ML SYRINGE IVP PRN (13:45)
[2021-11-20] MEDS: Verapamil ER (24 HR) 240 MG TABLET.ER PO SCH (14:41)
[2021-11-20] MEDS ORDERED: *HR* Midazolam HCl 2 MG/2 ML VIAL ONE ×2 (14:52→16:36)
[2021-11-20] MEDS ORDERED: *HR* FentaNYL (PF) 100 MCG/2 ML VIAL ONE ×2 (14:52→16:36)
[2021-11-20] MEDS ORDERED: Heparin 1,000 UNITS/500 mL 500 ML ONE (14:53)
[2021-11-20] MEDS ORDERED: Nitroglycerin 1,000 MCG/5 ML VIAL IV ONE (14:53)
[2021-11-20] MEDS ORDERED: 0.9 % Sodium Chloride 1,000 ML ONE ×2 (14:53→15:14)
[2021-11-20] MEDS ORDERED: ISOVUE-370 200 ML INFUS..BTL ONE (14:53)
[2021-11-20] MEDS ORDERED: *HR* Heparin 10,000 UNIT/10 ML VIAL ONE (14:53)
[2021-11-21] MEDS: Acetaminophen 325 MG TABLET PO PRN (04:02)
[2021-11-21] MEDS: Ipratropium Neb 0.5 MG NEBULIZER IH SCH ×3 (04:04→11:07)
[2021-11-21 06:22] VITALS: BP 124/68; PULSE 77; TEMP 97.6
[2021-11-21] MEDS: Budesonide/Formoterol 160/4.5 1 PUFF INH IH SCH (07:59)
[2021-11-21] MEDS: lisinopriL 20 MG TABLET PO SCH (08:13)
[2021-11-21] MEDS: hydroCHLOROthiazide 25 MG TABLET PO SCH (08:13)
[2021-11-21] MEDS: Verapamil ER (24 HR) 240 MG TABLET.ER PO SCH (08:13)
[2021-11-21] MEDS: Loratadine 10 MG TABLET PO SCH (08:13)
[2021-11-21] MEDS: Aspirin Enteric Coated 81 MG Tablet PO SCH (08:13)
[2021-11-21] MEDS: predniSONE 20 MG TABLET PO SCH (08:13)
[2021-11-21] MEDS: carvediloL 25 MG TABLET PO SCH (08:13)
[2021-11-21 11:09] VITALS: O2SAT 96
== END 2021-11-21 12:30 | disposition home or self-care (01) | DRG 287 ==
LOC: 3BNU → SUATTDRO 00:34
PROVIDERS: ADMIT Internal Medicine; ATTEND Nurse Practitioner